=== PATIENT | female | born 1960 | race Caucasian/White ===

== ENCOUNTER → 2017-07-04 12:00 | Outpatient (CLI) | payer OTHER, MEDICAID, SELFPAY ==
--- NOTE | 2017-07-04 | DI.MRI.S_ITS ---
PROCEDURE: MR HAND RT WO/W CON INDICATIONS: ARTHROPATHY TECHNIQUE: Coronal and axial T1 spin echo and T2 fast spin echo with fat saturation. Post-contrast coronal and axial T1 spin echo with fat saturation images through the right hand and wrist. COMPARISON: [facility], CR, XR HAND 3+ VIEWS BILATERAL, 05/17/2017, 14:58. FINDINGS: Image quality: Excellent. Bones and cartilage: Small T1 hypointense, T2 hyperintense enhancing foci involving the second and third metacarpal heads, PIP joint of the little finger (corresponding to the radiographic appearance) and middle finger, lunate are suspicious for small erosions. Diffuse interphalangeal, triscaphe and first CMC spurring. Synovium: Mild synovitis at the PIP joint of the little finger, second and third metacarpal joints. Soft tissues: Low-grade tenosynovitis involving the flexor tendon slips of the ring and little finger, image 35 series 8. IMPRESSION: Sub-5 mm erosions present at the PIP joint of the little and middle finger, second and third MCP joints and radiocarpal compartment as above. Mild enhancing synovitis of the PIP joint of the little finger, second and third metacarpal joints. Low-grade tenosynovitis involving the ring and little finger flexor tendon slips. Dictated by: Devaughn Wiley M.D. on 07/04/2017 at 15:04 Approved by: Devaughn Wiley M.D. on 07/04/2017 at 15:17
== END ==
PROVIDERS: Family Provider Physician Assistant; PCP Physician Assistant; Visit Provider Specialist/Technologist Athletic Trainer
DX: M19.041 Primary osteoarthritis, right hand (principal); M65.841 Other synovitis and tenosynovitis, right hand
CPT/HCPCS: 73220; A9579

== ENCOUNTER → 2017-11-17 17:40 | Outpatient (CLI) | payer OTHER, MEDICAID, SELFPAY ==
--- NOTE | 2017-11-17 | DI.MRI.S_ITS ---
PROCEDURE: MR SHOULDER RT WO CON INDICATIONS: IMPINGEMENT SYNDROME OF RIGHT SHOULDER TECHNIQUE: Noncontrast oblique coronal T2 fast spin echo with fat saturation, oblique sagittal T1 spin echo and T2 fast spin echo with fat saturation, axial T1 spin echo and T2 fast spin echo with fat saturation through the shoulder. COMPARISON: [facility], , SHOULDER MINIMUM 2 VIEW LEFT, 08/16/2016, 19:55. FINDINGS: Image quality: Excellent. Rotator cuff: There is a small, low-grade, partial, bursal sided tear of the rotator cuff at the junction of the supraspinatus and infraspinatus tendons (series 8, image 14; series 10 image 14) with supraspinatus (series 8, images 12-13; series 10, images 14-19) and infraspinatus (series 8, image 16; series 10, images 15-18) interstitial extension. There is thickening of the supraspinatus tendon with increased internal signal compatible with severe tendinosis. The subscapularis tendon appears intact throughout. Sagittal images demonstrate no muscle atrophy. Bones and bursae: No bone marrow contusions or fractures. Severe acromioclavicular joint osteoarthritis with downsloping acromion. No os acromiale. Large amount of subacromial/subdeltoid bursal fluid. Capsule and soft tissues: In the absence of intra-articular contrast, the labrum and glenohumeral ligaments appear intact. The long head of the biceps tendon demonstrates normal location and morphology. The rotator interval appears normal, without fibrosis. The coracohumeral ligament is normal in thickness. IMPRESSION: 1. Partial bursal sided rotator cuff tear with interstitial supraspinatus and infraspinatus tendon extension. 2. Severe acromioclavicular joint osteoarthritis. 3. Severe subacromial/subdeltoid bursitis. Dictated by: Catherine Padilla MD, PhD on 11/18/2017 at 22:33 Approved by: Catherine Padilla MD, PhD on 11/18/2017 at 22:57
== END ==
PROVIDERS: Family Provider Physician Assistant; Visit Provider Orthopaedic Surgery
DX: M75.41 Impingement syndrome of right shoulder (principal); M75.101 Unspecified rotator cuff tear or rupture of right shoulder, not specified as traumatic; M19.011 Primary osteoarthritis, right shoulder; M75.51 Bursitis of right shoulder
CPT/HCPCS: 73221

== ENCOUNTER 2018-01-07 15:32 | Emergency (ER) | payer OTHER, MEDICAID, SELFPAY ==
--- NOTE | 2018-01-07 15:39 | ED.SKABFB ---
HPI - Skin/Abscess/Foreign Bdy General Chief complaint: Skin/Abscess/Foreign Body Stated complaint: rash down right arm and hand,states swollen Lymph Time Seen by Provider: 01/07/18 15:39 Source: patient Mode of arrival: ambulatory Limitations: no limitations History of Present Illness HPI narrative: 57-year-old female with a history of psoriatic arthritis currently on Humira for the past several weeks here for evaluation of a rash on her left upper extremity and upper back. She also states she has enlarged lymph nodes in her left arm pain. Has had subjective fevers. She states the rash started around her thumb which has since somewhat resolved. Now has extending up the arm. Related Data Home Medications Medication Instructions Recorded Confirmed ranitidine HCl [Zantac] #0 08/16/16 Previous Rx's Medication Instructions Recorded ibuprofen 800 mg PO Q8HP PRN #30 tab 08/16/16 prednisone 2 tab PO QDAY 5 Days #0 tab 08/16/16 diazepam [Valium] 10 mg PO Q8HP PRN #10 tab 08/20/16 tramadol 1 - 2 tab PO Q6HP PRN #12 tab 08/20/16 acyclovir 800 mg PO 5XD 7 Days #140 cap 01/07/18 ibuprofen 600 mg PO TID PRN #30 tab 01/07/18 Allergies Allergy/AdvReac Type Severity Reaction Status Date / Time acetaminophen [From VICODIN] Allergy Severe projectile Unverified 05/17/17 12:33 vomiting cat pelt standardized Allergy Severe eye Unverified 05/17/17 12:33 allergenic ex swelling [CAT PELT STANDARDIZED EXTRACT] hydrocodone [From VICODIN] Allergy Severe projectile Unverified 05/17/17 12:33 vomiting/HIVES pollen/grass/weeds Allergy Intermediate hives Uncoded 05/17/17 12:33 Review of Systems Constitutional Reports fever(s) ENT Ears, Nose, Mouth, and Throat: Reports sore throat Cardiovascular Denies chest pain and Denies dyspnea Respiratory Denies cough and Denies dyspnea Musculoskeletal Denies myalgias and Denies arthralgias Integumentary/Breasts Reports rash Endocrine Comments: Lymph nodes under left armpit Hematologic/Lymphatic Comments: Not on anticoagulation PFSH Medical History Psoriatic arthritis (Acute) Surgical History No pertinent past surgical history (Acute) Social History lives independently: Yes Exam Initial Vital Signs Initial Vital Signs: Vital Signs Temperature 98.3 F 01/07/18 15:41 Pulse Rate 59 L 01/07/18 15:41 Respiratory Rate 16 01/07/18 15:41 Blood Pressure 164/101 H 01/07/18 15:41 Pulse Oximetry 97 01/07/18 15:41 Const General: cooperative, healthy appearing, comfortable, well developed, well groomed and No acute distress Orientation: alert, awake and oriented x3 Resp Effort & Inspection: normal respiratory effort Cardio Rate: regular rate Skin Other: Patient with lesions located in the left upper extremity and also in the mid lower cervical region of the back. Well-demarcated. Vesicles. No drainage. Minimal crusting. Does appear to follow the C6 dermatome. Majority lesions located distal to the elbow and on the lower cervical region of the back. Neuro Sensory Exam: no sensory deficits noted Psych Appearance: grossly normal and well kempt Course Vital Signs - 8 hr 01/07/18 15:41 Temperature 98.3 F Pulse Rate 59 L Respiratory Rate 16 Blood Pressure 164/101 H Pulse Oximetry 97 MDM - Skin/Abscess/Foreign Bdy MDM Narrative Medical decision making narrative: Patient's physical exam today consistent with shingles along the C6 dermatome. It does fit all of her symptoms. I suspect lymphadenopathy in her armpit is secondary to this. No signs of suprainfection. Her symptoms have been going on for approximately 5 days however given her current history of taking Humira and decreased immune response will start on acyclovir. Patient did not want any pain medication more than Motrin. She was given return precautions. She was given care instructions. She expressed understanding and agreement this plan. Discharge Plan Departure Patient Disposition: Home Clinical Impression: Herpes zoster Instructions: DI for Shingles Activity Restrictions/Additional Instructions: Keep the lesions covered. You can shower like normal. You are infectious as long as your developing new lesions. Do not share towels. Take the ibuprofen as needed for discomfort. Return to the emergency department for any new or worsening symptoms Prescriptions: New ibuprofen 600 mg tablet 600 mg PO TID PRN (Reason: pain) Qty: 30 RF: 0 acyclovir 200 mg capsule 800 mg PO 5XD 7 Days Qty: 140 RF: 0 No Action ranitidine HCl [Zantac] 150 MG tablet Qty: 0 RF: 0 ibuprofen 800 MG tablet 800 mg PO Q8HP PRNQty: 30 RF: 0 prednisone 20 MG tablet 2 tab PO QDAY 5 Days Qty: 0 RF: 0 tramadol 50 MG tablet 1 - 2 tab PO Q6HP PRNQty: 12 RF: 0 diazepam [Valium] 10 MG tablet 10 mg PO Q8HP PRNQty: 10 RF: 0
[2018-01-07 15:41] VITALS: BP 164/101; PULSE 59; RESP 16; TEMP 36.8; O2SAT 97
--- NOTE | 2018-01-07 15:59 | PC.NURSE ---
pt reports, left hand lesion noted on monday, then by monday left forearm with blistering rash, multiple sites, left armpit lymp node swelling, and also noted rash right upper scapular. tetanus up to date per pt. denies fever,chills and vomiting. also reporting taking humira the last 5 weeks for psoriasis.
== END 2018-01-07 16:20 | disposition home or self-care (01) ==
PROVIDERS: Emergency Provider Emergency Medicine; Family Provider Physician Assistant
DX: B02.9 Zoster without complications (principal)
CPT/HCPCS: 99282

== ENCOUNTER 2019-11-02 18:04 | Emergency (ER) | payer OTHER, MEDICAID, SELFPAY ==
[2019-11-02] VITALS (8 sets, daily range): BP systolic 124–168; BP diastolic 65–92; PULSE 65–81; RESP 12–21; TEMP 37; O2SAT 96–98
[2019-11-02 18:52] LABS: Bacteria Urine None Seen; WBC Urine None Seen (0-5/HPF)
[2019-11-02 18:54] LABS: Add Manual Diff / Slide Review NO; Basophils Absolute Auto 100 /uL (0-100); Basophils Percent Auto 0.8 % (0-2); Eosinophils Absolute Auto 100 /uL (0-450); Eosinophils Percent Auto 0.7 % (2-4); Hematocrit 33.5 % (36-46); Hemoglobin 11.6 g/dL (12.0-16.0); Lymphocytes Absolute Auto 1300 /uL (1100-4500); Lymphocytes Percent Auto 12.6 % (25-40); Mean Corpuscular HGB Conc 34.6 % (30-36); Mean Corpuscular Volume 89.5 fL (80-100); Monocytes Absolute Auto 500 /uL (0-900); Neutrophils Absolute Auto 8300 /uL (1500-7000); Neutrophils Percent Auto 80.9 % (50-75); Platelet Count 282 X10^3/uL (150-400); Red Blood Cell Count 3.74 X10^6/uL (4.0-5.2); Red Cell Distribution Width 12.9 % (11.6-14.8); White Blood Cell Count 10.2 X10^3/uL (4.5-11.0)
[2019-11-02 18:59] LABS: INR 1.3 (0.9-1.3); Prothrombin Time 15.1 SECONDS (10.1-12.7)
[2019-11-02 19:02] LABS: PTT Partial Thromboplastin Tim 37 SECONDS (26.4-36.2)
[2019-11-02 19:03] LABS: Alanine Aminotransferase 17 IU/L (<35); Albumin 3.9 g/dL (3.5-5.0); Albumin Globulin Ratio 1.3 (1.0-2.8); Alkaline Phosphatase 87 U/L (38-126); Aspartate Aminotransferase 23 IU/L (14-36); BUN Creatinine Ratio 11.1 (6-22); Bilirubin Total 1.6 mg/dL (0.2-1.3); Blood Urea Nitrogen 7 mg/dL (7-17); Calcium 8.7 mg/dL (8.4-10.2); Carbon Dioxide 29 mmol/L (22-32); Chloride 100 mmol/L (98-107); Estimated Glomerular Filt Rate > 60.0 mL/min (>60); Globulin 2.9 g/dL (1.7-4.1); Glucose 111 mg/dL (70-100); HEMOLYSIS < 15 (0-50); Lipase 15 U/L (23-300); Sodium 136 mmol/L (137-145); Total Protein 6.8 g/dL (6.3-8.2)
[2019-11-02 19:07] LABS: Culture Indicated Urine Cult Not Indicated; RBC Urine 1-5/HPF (0-5/HPF)
--- NOTE | 2019-11-02 19:19 | DI.CT.S_ITS ---
PROCEDURE: CT ABDOMEN PELVIS W CON INDICATIONS: LLQ pain and n/v/d TECHNIQUE: After the administration of intravenous contrast, 5 mm thick sections acquired from the diaphragm to the symphysis. 5 mm coronal and sagittal reformats were acquired. For radiation dose reduction, the following was used: automated exposure control, adjustment of mA and/or kV according to patient size. COMPARISON: None. FINDINGS: Image quality: Excellent. ABDOMEN: Lung bases: Lung bases are clear. Heart size is normal. Solid organs: Anteriorly within segment 4a of the left hepatic lobe, there is a subcapsular oval hypodense lesion measuring up to 1.0 cm with attenuation values higher than expected for a simple cyst. A small region of hypodensity is also demonstrated in the anterior left hepatic lobe along the falciform ligament compatible with focal fatty infiltration. The gallbladder appears within normal limits without calcified gallstones. Biliary system is non-dilated. Pancreas enhances normally. No peripancreatic fat stranding or fluid collections. No pancreatic duct dilatation. The spleen is normal in size. No adrenal nodules. Kidneys demonstrate no hydronephrosis. Peritoneum and bowel: Small bowel loops demonstrate normal wall thickness and caliber. The appendix appears within normal limits. There is colonic diverticulosis present. Segmental colonic wall thickening is demonstrated in the distal descending and sigmoid colon with pericolonic fat stranding and a small amount of pericolonic free fluid. Findings are consistent with a segmental colitis, likely secondary to diverticulitis. No discrete loculated abscess collection or macroscopic free air. A small amount of perihepatic free fluid is also demonstrated anteriorly along the left hepatic lobe. Nodes and vessels: No retroperitoneal or mesenteric adenopathy by size criteria. Aorta and inferior vena cava are normal in size. Miscellaneous: No ventral hernias. PELVIS: Genitourinary: Bladder wall thickness is normal. Miscellaneous: No inguinal hernias or adenopathy. Bones: No suspicious bony lesions. No vertebral body compression fractures. IMPRESSION: 1. Segmental colitis of the distal descending and sigmoid colon possibly secondary to diverticulitis. Pericolonic free fluid is demonstrated without a discrete loculated abscess collection at this time. No macroscopic free air. 2. Small peripheral subcapsular hypodense lesion in the anterior left hepatic lobe with a small amount of adjacent perihepatic free fluid which may be related to the pelvic inflammatory process or reflect a small capsular disruption. The lesion is nonspecific, with attenuation values higher than expected for simple cyst. Consider further evaluation with an abdominal ultrasound or a liver protocol MRI or CT. Dictated by: Avelino Orozco M.D. on 11/02/2019 at 20:26 Approved by: Avelino Orozco M.D. on 11/02/2019 at 20:35
[2019-11-02] MEDS: KETOROLAC 60 MG/2 ML VIAL 15 MG IV (19:57)
[2019-11-02] MEDS: POTASSIUM CHLORIDE 20 MEQ/15 ML UDC 40 MEQ PO (19:57)
[2019-11-02] MEDS: ONDANSETRON 4 MG/2 ML INJ IV (19:58)
--- NOTE | 2019-11-02 20:14 | ED.ABDPAIN ---
HPI - Abdominal Pain <Jimmie KEHINDE Christopher - Last Filed: 11/02/19 22:43> General Chief Complaint: Abdominal Pain Stated Complaint: Pain, Lower Left Abd, N/V/D Time Seen by Provider: 11/02/19 18:25 Source: patient Mode of arrival: Ambulatory Limitations: no limitations History of Present Illness HPI narrative: This is a 59 year female, nonsmoker, who has no contributory history presents to ED with chief complain of nausea, vomiting, multiple episodes of small amount of diarrhea and left lower quadrant pain which started 4 days ago. Patient reports from yesterday pain increased in left lower quadrant and now she has radiating pain to left lower flank. She reports pain is constant and increases with laying down and palpation on abdomen. She denies blood in her stools or emesis. Patient reports back pain feels as spasming. She also reports urinary symptoms such as frequency, urgency, occasional dysuria but denies hematuria. Denies history of kidney stone or kidney infection, diverticulitis or diverticulosis. Patient denies previous abdominal surgeries. She had once bladder infection in 20s but denies frequent UTIs. Patient has taken Zofran at home and ibuprofen twice a day for nausea and pain. Patient denies recent antibiotic medication use, travel, camping, eating bad food or other family member with similar symptoms. Patient denies fever but reports chills and hot flashes. LMP about 2 years ago. She denies unusual vaginal discharge or bleeding. Patient is able to tolerate fluids in between vomiting with water and Gatorade and broth. She reports decreased appetite. She denies chest pain, breathing difficulty, or lightheadedness. Related Data Home Medications Medication Instructions Recorded Confirmed ondansetron 4 mg PO Q6HR PRN 11/02/19 11/02/19 Previous Rx's Medication Instructions Recorded ibuprofen 600 mg PO TID PRN #30 tab 01/07/18 ciprofloxacin HCl 500 mg PO BID 7 Days #14 tab 11/02/19 metronidazole [Flagyl] 500 mg PO Q8H 7 Days #21 tab 11/02/19 ondansetron 4 mg PO BID-TID PRN #7 tab 11/02/19 Allergies Allergy/AdvReac Type Severity Reaction Status Date / Time acetaminophen [From VICODIN] Allergy Severe projectile Verified 11/02/19 18:21 vomiting cat pelt standardized Allergy Severe eye Verified 11/02/19 18:21 allergenic ex swelling [CAT PELT STANDARDIZED EXTRACT] hydrocodone [From VICODIN] Allergy Severe projectile Verified 11/02/19 18:21 vomiting/HIVES pollen/grass/weeds Allergy Intermediate hives Uncoded 05/17/17 12:33 Review of Systems <KEHINDE Tony - Last Filed: 11/02/19 22:43> Review of Systems Narrative: General: See HPI HEENT: Denies sinus pain, ear pain, sore throat, difficulty swallowing, dizziness. Respiratory: Denies dyspnea, cough, wheezing, hemoptysis, sputum. Cardiovascular: Denies chest pain, palpitations, orthopnea, edema. Gastrointestinal: See HPI : See HPI Musculoskeletal: Denies weakness, joint pain or bony pain, (+) left flank pain. Skin: Denies rash, skin lesions, or other. Neurologic: Denies weakness, headache, numbness, change in speech, confusion, seizures, incoordination. Psychiatric: No concerning psychosocial issues. 12-point review of systems is negative except for those stated above. Patient History <KEHINDE Tony - Last Filed: 11/02/19 22:43> Medical History Psoriatic arthritis (Acute) Surgical History H/O shoulder surgery (Acute) Social History lives independently: Yes Smoking Status: Never smoker Smoking Status: Never smoker alcohol intake frequency: 0-2 drinks per day Substance Use Type: does not use Exam <KEHINDE Tony - Last Filed: 11/02/19 22:43> Narrative Exam Narrative: GEN: Alert, oriented x 3, well appearing and nourished, and in no acute distress. Head: Normal cephalic, atraumatic. No scalp or temporal tenderness, palpable mass or rash. EYES: Pupils are equal, round, and reactive to light and accommodation. Extraocular muscles are intact bilaterally. There is no subconjunctival hemorrhage, exudate and sclera non-icteric. ENT: Hearing grossly intact. Nose without bleeding, purulent discharge or deviation. Airway patent. Neck: Trachea in midline. No JVD, non-tender without lymphadenopathy. No masses or thyroid megaly. Supple, non-tender and no meningeal signs. CARDIAC: Normal regular rate and rhythm without murmurs, gallops, or rubs. No chest wall tenderness. No peripheral edema, cyanosis or pallor. Capillary refill is less than 2 seconds. RESPIRATORY: Lungs are clear to auscultate bilaterally. No cough, wheezes, rales, or rhonchi. No stridor, respiratory distress, increase work of breathing, or accessary muscle used. ABD: Abdomen soft and non-distended. Bilateral lower abdominal pain to palpate worse in left-sided. No guarding. Bowel sounds are normal in all 4 quadrants. There is no palpable masses or organomegaly. EXT: Full painless ROM of all extremities with no loss of sensation, strength, effusion or edema. SKIN: Warm, dry, normal color for patient. No erythema, lesions or rash over visible areas. BACK: Nontender without deformity or crepitance. Left low back pain to percuss. NEUROLOGICAL: Alert and oriented to place, time and person. Sensation and motor function intact bilaterally. No facial droops, dysphasia. PSYCHIATRIC: Good judgement and reason, without hallucinations, abnormal affect or abnormal behaviors during the examination. Patient is not suicidal. Initial Vital Signs Initial Vital Signs: Vital Signs Temperature 98.6 F 11/02/19 18:19 Pulse Rate 72 11/02/19 18:19 Respiratory Rate 18 11/02/19 18:19 Blood Pressure 168/79 H 11/02/19 18:19 Pulse Oximetry 98 11/02/19 18:19 <Tyler Wong DO - Last Filed: 11/02/19 22:44> Initial Vital Signs Initial Vital Signs: Vital Signs Temperature 98.6 F 11/02/19 18:19 Pulse Rate 72 11/02/19 18:19 Respiratory Rate 18 11/02/19 18:19 Blood Pressure 168/79 H 11/02/19 18:19 Pulse Oximetry 98 11/02/19 18:19 Scores <KEHINDE Tony - Last Filed: 11/02/19 22:43> GCS Atlantic coma scale eye opening: Spontaneous Atlantic coma scale verbal response: Orientated Atlantic coma scale motor response: Obey commands Slava coma scale total score: 15 Course <KEHINDE Tony - Last Filed: 11/02/19 22:43> Orders Ordered: ED Orders 11/02/19 18:35 Urine Microscopic Stat 11/02/19 18:48 Complete Blood Count AUTO DIFF Stat Comprehensive Metabolic Panel Stat Lipase Stat Partial Thromboplastin Time Stat Prothrombin Time INR Stat 11/02/19 19:19 CT abdomen pelvis w con Stat 11/02/19 19:55 EKG-12 Lead Stat Sodium Chloride (Normal Saline 0.9%) 1,000 mls @ 125 mls/hr IV CONT [place] Last Admin: 11/02/19 20:49 Dose: 125 mls/hr Documented by: DESIREE Discontinued Medications Ciprofloxacin (Cipro) 500 mg PO NOW ONE Stop: 11/02/19 20:45 Last Admin: 11/02/19 21:04 Dose: 500 mg Documented by: DESIREE Potassium Chloride 20 meq/ (Sodium Chloride) 260 mls @ 130 mls/hr IV NOW ONE Stop: 11/02/19 21:24 Last Admin: 11/02/19 20:42 Dose: 130 mls/hr Documented by: DESIREE Cosigned by: TEJINDER Ketorolac Tromethamine (Toradol) 15 mg IV NOW ONE Stop: 11/02/19 19:50 Last Admin: 11/02/19 19:57 Dose: 15 mg Documented by: DESIREE Metronidazole (Metronidazole) 500 mg PO NOW ONE Stop: 11/02/19 20:45 Last Admin: 11/02/19 21:05 Dose: 500 mg Documented by: DESIREE Ondansetron HCl (Zofran) 4 mg IV NOW ONE Stop: 11/02/19 19:50 Last Admin: 11/02/19 19:58 Dose: 4 mg Documented by: DESIREE Potassium Chloride (Potassium Chloride) 40 meq PO NOW ONE Stop: 11/02/19 19:26 Last Admin: 11/02/19 19:57 Dose: 40 meq Documented by: DESIREE Reevaluation(s) Reevaluation #1: Received potassium IV from upstairs and will start infusing over 2 hrs. Time: 20:42 Vital Signs Vital signs: Vital Signs - 8 hr 11/02/19 18:19 11/02/19 20:30 11/02/19 21:01 Temperature 98.6 F Pulse Rate 72 78 81 Respiratory Rate 18 12 14 Blood Pressure 168/79 H 124/91 H 149/65 H Pulse Oximetry 98 98 97 11/02/19 21:22 11/02/19 21:30 11/02/19 22:00 Temperature Pulse Rate 71 74 69 Respiratory Rate 17 21 17 Blood Pressure 143/65 H 124/92 H Pulse Oximetry 98 96 97 11/02/19 22:30 11/02/19 22:31 Temperature Pulse Rate 66 65 Respiratory Rate 13 21 Blood Pressure 129/72 Pulse Oximetry 98 98 <Tyler Wong, DO - Last Filed: 11/02/19 22:44> Orders Ordered: ED Orders 11/02/19 18:35 Urine Microscopic Stat 11/02/19 18:48 Complete Blood Count AUTO DIFF Stat Comprehensive Metabolic Panel Stat Lipase Stat Partial Thromboplastin Time Stat Prothrombin Time INR Stat 11/02/19 19:19 CT abdomen pelvis w con Stat 11/02/19 19:55 EKG-12 Lead Stat Sodium Chloride (Normal Saline 0.9%) 1,000 mls @ 125 mls/hr IV CONT [place] Last Admin: 11/02/19 20:49 Dose: 125 mls/hr Documented by: DESIREE Discontinued Medications Ciprofloxacin (Cipro) 500 mg PO NOW ONE Stop: 11/02/19 20:45 Last Admin: 11/02/19 21:04 Dose: 500 mg Documented by: DESIREE Potassium Chloride 20 meq/ (Sodium Chloride) 260 mls @ 130 mls/hr IV NOW ONE Stop: 11/02/19 21:24 Last Admin: 11/02/19 20:42 Dose: 130 mls/hr Documented by: DESIREE Cosigned by: TEJINDER Ketorolac Tromethamine (Toradol) 15 mg IV NOW ONE Stop: 11/02/19 19:50 Last Admin: 11/02/19 19:57 Dose: 15 mg Documented by: DESIREE Metronidazole (Metronidazole) 500 mg PO NOW ONE Stop: 11/02/19 20:45 Last Admin: 11/02/19 21:05 Dose: 500 mg Documented by: DESIREE Ondansetron HCl (Zofran) 4 mg IV NOW ONE Stop: 11/02/19 19:50 Last Admin: 11/02/19 19:58 Dose: 4 mg Documented by: DESIREE Potassium Chloride (Potassium Chloride) 40 meq PO NOW ONE Stop: 11/02/19 19:26 Last Admin: 11/02/19 19:57 Dose: 40 meq Documented by: DESIREE Vital Signs Vital signs: Vital Signs - 8 hr 11/02/19 18:19 11/02/19 20:30 11/02/19 21:01 Temperature 98.6 F Pulse Rate 72 78 81 Respiratory Rate 18 12 14 Blood Pressure 168/79 H 124/91 H 149/65 H Pulse Oximetry 98 98 97 11/02/19 21:22 11/02/19 21:30 11/02/19 22:00 Temperature Pulse Rate 71 74 69 Respiratory Rate 17 21 17 Blood Pressure 143/65 H 124/92 H Pulse Oximetry 98 96 97 11/02/19 22:30 11/02/19 22:31 Temperature Pulse Rate 66 65 Respiratory Rate 13 21 Blood Pressure 129/72 Pulse Oximetry 98 98 MDM - Abdominal Pain <Jimmie KEHINDE Christopher - Last Filed: 11/02/19 22:43> Differential Diagnosis Differential diagnosis: Likely acute appendicitis, diverticulitis, gastroenteritis and other (UTI, pyelonephritis, renal stone) Medical Records Attestation: I reviewed the patient's medical records. Lab Data Attestation: I reviewed the patient's lab results. Result diagrams: 11/02/19 18:48 11/02/19 18:48 Labs: Lab Results 11/02/19 11/02/19 11/02/19 Range/Units 18:35 18:48 18:48 WBC 10.2 (4.5-11.0) X10^3/uL RBC 3.74 L (4.0-5.2) X10^6/uL Hgb 11.6 L (12.0-16.0) g/dL Hct 33.5 L (36-46) % MCV 89.5 (80-100) fL MCH 31.0 (26-34) PG MCHC 34.6 (30-36) % RDW 12.9 (11.6-14.8) % Plt Count 282 (150-400) X10^3/uL Neut % (Auto) 80.9 H (50-75) % Lymph % (Auto) 12.6 L (25-40) % Johnson % (Auto) 5.0 (3-14) % Eos % (Auto) 0.7 L (2-4) % Baso % (Auto) 0.8 (0-2) % Neut # (Auto) 8300 H (7942-6208) /uL Lymph # (Auto) 1300 (0914-1300) /uL Johnson # (Auto) 500 (0-900) /uL Eos # (Auto) 100 (0-450) /uL Baso # (Auto) 100 (0-100) /uL PT 15.1 H (10.1-12.7) SECONDS INR 1.3 (0.9-1.3) APTT 37 H (26.4-36.2) SECONDS Sodium (137-145) mmol/L Potassium (3.4-5.1) mmol/L Chloride (98-107) mmol/L Carbon Dioxide (22-32) mmol/L BUN (7-17) mg/dL Creatinine (0.52-1.04) mg/dL Estimated GFR (>60) mL/min BUN/Creatinine Ratio (6-22) Glucose (70-100) mg/dL Calcium (8.4-10.2) mg/dL Total Bilirubin (0.2-1.3) mg/dL AST (14-36) IU/L ALT (<35) IU/L Alkaline Phosphatase (38-126) U/L Total Protein (6.3-8.2) g/dL Albumin (3.5-5.0) g/dL Globulin (1.7-4.1) g/dL Albumin/Globulin Ratio (1.0-2.8) Lipase (23-300) U/L Urine RBC 1-5/hpf (0-5/HPF) Urine WBC None seen (0-5/HPF) Urine Bacteria None seen (None) Ur Culture Indicated? Cult not indicated 11/02/19 Range/Units 18:48 WBC (4.5-11.0) X10^3/uL RBC (4.0-5.2) X10^6/uL Hgb (12.0-16.0) g/dL Hct (36-46) % MCV (80-100) fL MCH (26-34) PG MCHC (30-36) % RDW (11.6-14.8) % Plt Count (150-400) X10^3/uL Neut % (Auto) (50-75) % Lymph % (Auto) (25-40) % Johnson % (Auto) (3-14) % Eos % (Auto) (2-4) % Baso % (Auto) (0-2) % Neut # (Auto) (9853-0098) /uL Lymph # (Auto) (0743-9680) /uL Johnson # (Auto) (0-900) /uL Eos # (Auto) (0-450) /uL Baso # (Auto) (0-100) /uL PT (10.1-12.7) SECONDS INR (0.9-1.3) APTT (26.4-36.2) SECONDS Sodium 136 L (137-145) mmol/L Potassium 3.0 L (3.4-5.1) mmol/L Chloride 100 (98-107) mmol/L Carbon Dioxide 29 (22-32) mmol/L BUN 7 (7-17) mg/dL Creatinine 0.63 (0.52-1.04) mg/dL Estimated GFR > 60.0 (>60) mL/min BUN/Creatinine Ratio 11.1 (6-22) Glucose 111 H (70-100) mg/dL Calcium 8.7 (8.4-10.2) mg/dL Total Bilirubin 1.6 H (0.2-1.3) mg/dL AST 23 (14-36) IU/L ALT 17 (<35) IU/L Alkaline Phosphatase 87 (38-126) U/L Total Protein 6.8 (6.3-8.2) g/dL Albumin 3.9 (3.5-5.0) g/dL Globulin 2.9 (1.7-4.1) g/dL Albumin/Globulin Ratio 1.3 (1.0-2.8) Lipase 15 L (23-300) U/L Urine RBC (0-5/HPF) Urine WBC (0-5/HPF) Urine Bacteria (None) Ur Culture Indicated? Point of care testing: Urine Dip Bedside Urine Glucose Negative Bedside Urine Bilirubin - Negative Bedside Urine Ketone +/- 5 Urine Specific [place] 1.010 Bedside Urine Occult Blood +++ Bedside Urine pH 6.0 Bedside Urine Protein - Negative Bedside Urine Urobilinogen - Negative Bedside Urine Nitrite - Negative Bedside Urine Leukocytes - Negative Esterase ECG Data Attestation: I personally reviewed and interpreted this ECG as follows: Prior ECG tracings: not available for review Interpretation: Sinus rhythm rate at 67. Left dominant axis. W[place] interval 162, QRS duration 77, QT/QTC 381/397. No acute ST changes. Q-waves in V1 through V4 of indetermiated age MDM Narrative Medical decision making narrative: This is a 59 year female who presents to ED with 4 day duration of nausea, vomiting, diarrhea, left lower quadrant pain radiating to left flank. Physical exam appreciated tenderness to palpate in bilateral lower abdomen without mass, or rebounding tenderness. Left low flank tenderness to percuss. Urine test is negative for urine nitrites or leuks. There was 3+ occult blood in POC test. No indications for infection for urine micro test. No leukocytosis. Very mild anemia of H&H today 11.6/33.5. Normal platelet counts. Mildly prolonged PT and PTT of 15.1 and 37 with INR of 1.3. Hypo kalemia of 3.0 it is likely from frequent loose stool and vomiting for last 4 days. Normal lipase. Normal kidney function test. Patient denies history of diverticulitis or kidney stones. No indications for kidney infection. CT test of abdomen was ordered and obtained given patient's symptoms. CT abdomen pelvis shows normal appendix but colonic diverticulosis and segmental colonic wall thickening in the distal descending and sigmoid colon with pericolonic fat stranding with small amount of pericolonic free fluid indicating diverticulitis, colitis. No discrete loculated abscess or free air or appreciated. Incidental finding of small peripheral subcapsular hypodense lesions in the anterior left hepatic lobes with small amount of perihepatic free fluid. Patient advised to follow-up with dedicated imaging test in the near future. Patient was treated IV Zofran and toward our for nausea and pain. Received 40 mEq oral potassium and 20 mEq of IV potassium for hyponatremia. And treated with oral Cipro and Flagyl and will discharge with same medications for diverticulitis. Patient advised to stick with clear liquid for next 2 days and advanced diet to prevent constipation in the future. Return precautions were discussed with patient and provided [facility] for number to follow-up with arrange primary care physician. Patient verbalized understanding and agreement with treatment plan. <Tyler Wong, DO - Last Filed: 11/02/19 22:44> Lab Data Labs: Lab Results 11/02/19 11/02/19 11/02/19 Range/Units 18:35 18:48 18:48 WBC 10.2 (4.5-11.0) X10^3/uL RBC 3.74 L (4.0-5.2) X10^6/uL Hgb 11.6 L (12.0-16.0) g/dL Hct 33.5 L (36-46) % MCV 89.5 (80-100) fL MCH 31.0 (26-34) PG MCHC 34.6 (30-36) % RDW 12.9 (11.6-14.8) % Plt Count 282 (150-400) X10^3/uL Neut % (Auto) 80.9 H (50-75) % Lymph % (Auto) 12.6 L (25-40) % Johnson % (Auto) 5.0 (3-14) % Eos % (Auto) 0.7 L (2-4) % Baso % (Auto) 0.8 (0-2) % Neut # (Auto) 8300 H (3836-3841) /uL Lymph # (Auto) 1300 (9981-8663) /uL Johnson # (Auto) 500 (0-900) /uL Eos # (Auto) 100 (0-450) /uL Baso # (Auto) 100 (0-100) /uL PT 15.1 H (10.1-12.7) SECONDS INR 1.3 (0.9-1.3) APTT 37 H (26.4-36.2) SECONDS Sodium (137-145) mmol/L Potassium (3.4-5.1) mmol/L Chloride (98-107) mmol/L Carbon Dioxide (22-32) mmol/L BUN (7-17) mg/dL Creatinine (0.52-1.04) mg/dL Estimated GFR (>60) mL/min BUN/Creatinine Ratio (6-22) Glucose (70-100) mg/dL Calcium (8.4-10.2) mg/dL Total Bilirubin (0.2-1.3) mg/dL AST (14-36) IU/L ALT (<35) IU/L Alkaline Phosphatase (38-126) U/L Total Protein (6.3-8.2) g/dL Albumin (3.5-5.0) g/dL Globulin (1.7-4.1) g/dL Albumin/Globulin Ratio (1.0-2.8) Lipase (23-300) U/L Urine RBC 1-5/hpf (0-5/HPF) Urine WBC None seen (0-5/HPF) Urine Bacteria None seen (None) Ur Culture Indicated? Cult not indicated 11/02/19 Range/Units 18:48 WBC (4.5-11.0) X10^3/uL RBC (4.0-5.2) X10^6/uL Hgb (12.0-16.0) g/dL Hct (36-46) % MCV (80-100) fL MCH (26-34) PG MCHC (30-36) % RDW (11.6-14.8) % Plt Count (150-400) X10^3/uL Neut % (Auto) (50-75) % Lymph % (Auto) (25-40) % Johnson % (Auto) (3-14) % Eos % (Auto) (2-4) % Baso % (Auto) (0-2) % Neut # (Auto) (1744-3343) /uL Lymph # (Auto) (9154-6382) /uL Johnson # (Auto) (0-900) /uL Eos # (Auto) (0-450) /uL Baso # (Auto) (0-100) /uL PT (10.1-12.7) SECONDS INR (0.9-1.3) APTT (26.4-36.2) SECONDS Sodium 136 L (137-145) mmol/L Potassium 3.0 L (3.4-5.1) mmol/L Chloride 100 (98-107) mmol/L Carbon Dioxide 29 (22-32) mmol/L BUN 7 (7-17) mg/dL Creatinine 0.63 (0.52-1.04) mg/dL Estimated GFR > 60.0 (>60) mL/min BUN/Creatinine Ratio 11.1 (6-22) Glucose 111 H (70-100) mg/dL Calcium 8.7 (8.4-10.2) mg/dL Total Bilirubin 1.6 H (0.2-1.3) mg/dL AST 23 (14-36) IU/L ALT 17 (<35) IU/L Alkaline Phosphatase 87 (38-126) U/L Total Protein 6.8 (6.3-8.2) g/dL Albumin 3.9 (3.5-5.0) g/dL Globulin 2.9 (1.7-4.1) g/dL Albumin/Globulin Ratio 1.3 (1.0-2.8) Lipase 15 L (23-300) U/L Urine RBC (0-5/HPF) Urine WBC (0-5/HPF) Urine Bacteria (None) Ur Culture Indicated? Point of care testing: Urine Dip Bedside Urine Glucose Negative Bedside Urine Bilirubin - Negative Bedside Urine Ketone +/- 5 Urine Specific [place] 1.010 Bedside Urine Occult Blood +++ Bedside Urine pH 6.0 Bedside Urine Protein - Negative Bedside Urine Urobilinogen - Negative Bedside Urine Nitrite - Negative Bedside Urine Leukocytes - Negative Esterase Discharge Plan Departure Patient Disposition: Home Clinical Impression: Diverticulitis, Hypokalemia Abdominal pain Qualifiers: Abdominal location: lower abdomen, unspecified Qualified Code(s): R10.30 - Lower abdominal pain, unspecified Instructions: DI for Diverticulitis, DI for Abdominal Pain-Adult, DI for Hypokalemia Activity Restrictions/Additional Instructions: You have been diagnosed with [low abdominal pain and diverticulitis. Hypokalemia likely from frequent Nausea, vomiting, diarrhea. No leukocytosis. Very mildly low in H&H. Mildly decreased potassium to 3.0. You have received Cipro and Flagyl oral antibiotic medication and oral potassium chloride 40 mEq and IV 20 mEq while in ED. Stay on clear liquid diet for next couple of days. Then, you can advance to bland diet and prevent constipation.]. What to do: *Take your medications as directed. Please continue with Cipro twice a day and Flagyl 3 times a day for next 7 days. You can take [id number] Tylenol and or Motrin as needed for discomfort. Zofran as needed for nausea. [facility] *Follow up with your primary care provider in 2-3 days, call for an appointment. Let them know you were seen in the ED and that we asked you to be seen in follow up. *Return to ED if you have any new, worsening, or concerning symptoms, such as [worsening pain, fever/chills, unable to tolerate fluids, chest pain, breathing difficulty, lightheadedness or any acute concerns]. Prescriptions: New ciprofloxacin HCl 500 mg tablet 500 mg PO BID 7 Days Qty: 14 RF: 0 metronidazole [Flagyl] 500 mg tablet 500 mg PO Q8H 7 Days Qty: 21 RF: 0 ondansetron 4 mg tablet,disintegrating 4 mg PO BID-TID PRN (Reason: nausea and vomiting) Qty: 7 RF: 0 No Action ondansetron 4 mg tablet,disintegrating 4 mg PO Q6HR PRN (Reason: Nausea) RF: 0 ibuprofen 600 mg tablet 600 mg PO TID PRN (Reason: pain) Qty: 30 RF: 0 Referrals: [facility] Resources [Outside] <Tyler Wong, - Last Filed: 11/02/19 22:44> [facility] Dr Wong Co-Sign Statement: I was available for consultation during this patient's emergency department visit. This chart is signed by myself for administrative purposes only. I did not have direct contact with this patient during this visit. They were seen independently by the APC.
[2019-11-02] MEDS: POTASSIUM CHLORIDE 20 MEQ in SODIUM CHLORIDE 0.9% 250 ML 130 ML IV (20:42)
[2019-11-02] MEDS: SODIUM CHLORIDE 0.9% 1,000 ML 125 ML IV (20:49)
[2019-11-02] MEDS: CIPROFLOXACIN 500 MG TABLET PO (21:04)
[2019-11-02] MEDS: metroNIDAZOLE 250 MG TABLET 500 MG PO (21:05)
== END 2019-11-02 23:12 | disposition home or self-care (01) ==
PROVIDERS: Emergency Provider Nurse Practitioner Family; Family Provider Physician Assistant
DX: K57.92 Diverticulitis of intestine, part unspecified, without perforation or abscess without bleeding (principal); E87.6 Hypokalemia; R10.30 Lower abdominal pain, unspecified
CPT/HCPCS: 36415; 74177; 80053; 81003; 81015; 83690; 85025; 85610; 85730; 93005; 96365; 96366; 96375; 99284; J1885; J2405; J3480; Q9967